=== PATIENT | female | born 1990 | race Caucasian/White ===

== ENCOUNTER 2020-12-14 09:15 | Emergency (ER) | payer MEDICARE, MEDICAID, SELFPAY ==
[2020-12-14 09:25] VITALS: BP 116/71; PULSE 78; RESP 14; TEMP 36.8; O2SAT 98; BMI 19.3
--- NOTE | 2020-12-14 10:03 | ED_ITS ---
HPI - Ear Problem General Chief complaint: Ear Problems <MOLLY Solis Last Filed: 12/14/20 10:11> Stated complaint: ear pain <MOLLY Solis Last Filed: 12/14/20 10:11> Time Seen by Provider: 12/14/20 10:02 <MOLLY Solis Last Filed: 12/14/20 10:11> Source: patient <MOLLY Solis Last Filed: 12/14/20 10:11> Mode of arrival: ambulatory <MOLLY Solis Last Filed: 12/14/20 10:11> Limitations: no limitations <MOLLY Solis Last Filed: 12/14/20 10:11> History of Present Illness HPI Narrative: Patient is a 30-year-old female with no significant past medical history complaining of left ear blockage and pain x2 days. She denies any drainage or blood coming from the ear. She denies swimming recently. She does use Q-tips. She states the bone behind her ear does not hurt but the soft area underneath it has a ball that is tender. She denies fevers. <MOLLY Solis Last Filed: 12/14/20 10:11> Related Data Home medications: Previous Rx's Medication Instructions Recorded amoxicillin-pot clavulanate 1 tab PO Q12H 10 Days #20 tab 12/14/20 [Augmentin] ofloxacin 10 drp OTIC (EARS) DAILY 7 Days 12/14/20 #10 ml <MOLLY Solis Last Filed: 12/14/20 10:11> Allergies/adverse reactions: Allergies Allergy/AdvReac Type Severity Reaction Status Date / Time No Known Allergies Allergy Mild NOT Unverified 05/04/20 16:53 APPLICABLE <MOLLY Solis Last Filed: 12/14/20 10:11> Review of Systems Review of Systems: Yes all other systems are reviewed and are negative <MOLLY Solis Last Filed: 12/14/20 10:11> [facility] Past Medical History Surgical History: Surgical History History of appendectomy <Stefanie Gaston PA-C - Last Filed: 12/14/20 10:11> Social History Social History: Social History Smoking Status: Current every day smoker <Stefanie Gaston PA-C - Last Filed: 12/14/20 10:11> Physical Exam Vital Signs: Vital Signs: Last Vital Signs Temp 98.2 F 12/14/20 09:25 Pulse 78 12/14/20 09:25 Resp 14 12/14/20 09:25 BP 116/71 12/14/20 09:25 Pulse Ox 98 12/14/20 09:25 Body Mass Index 19.3 <Stefanie Gaston PA-C - Last Filed: 12/14/20 10:11> Vital Signs: Last Vital Signs Temp 98.2 F 12/14/20 09:25 Pulse 78 12/14/20 09:25 Resp 14 12/14/20 09:25 BP 116/71 12/14/20 09:25 Pulse Ox 98 12/14/20 09:25 Body Mass Index 19.3 <Andrew Woodson MD - Last Filed: 01/02/21 13:26> Const: General: cooperative, healthy appearing, comfortable, no acute distress and well developed <Stefanie Gaston PA-C - Last Filed: 12/14/20 10:11> Orientation/consciousness: patient oriented x3 <Stefanie Gaston PA-C - Last Filed: 12/14/20 10:11> Limitations: no limitations <Stefanie Gaston PA-C - Last Filed: 12/14/20 10:11> HENMT: Head: Yes normal to inspection <Stefanie Gaston PA-C - Last Filed: 12/14/20 10:11> Ears: hearing grossly normal bilaterally, TM normal on the right, Abnormal EAC present (Tender) erythema, external ear abnormal ( ) auricular tenderness and pain with movement of external ear; no auricular hematomas, TM abnormal (Left) erythematous and with loss of landmarks and other (Pre-auricular lymphadenopathy left side) <Stefanie Gaston PA-C - Last Filed: 12/14/20 10:11> General nose exam: Normal external nose present <Stefanie Gaston PA-C - Last Filed: 12/14/20 10:11> Face and sinus: Yes normal facial exam <Stefanie Gaston PA-C - Last Filed: 12/14/20 10:11> Eyes: General: appearance normal, both eyes and all related structures <Stefanie Gaston PA-C - Last Filed: 12/14/20 10:11> EOM: EOMs intact bilaterally <Stefanie Gaston PA-C - Last Filed: 12/14/20 10:11> Neck: Neck: Yes normal visual inspection and Yes full ROM <Stefanie Gaston PA-C - Last Filed: 12/14/20 10:11> Resp: Effort & Inspection: normal respiratory effort and able to speak in complete sentences <Stefanie Gaston PA-C - Last Filed: 12/14/20 10:11> Neuro: General: patient oriented x3 <Stefanie Gaston PA-C - Last Filed: 12/14/20 10:11> Extrem: General: Yes normal to inspection <Stefanie Gaston PA-C - Last Filed: 12/14/20 10:11> Course Course Course Narrative: I have reviewed the chart <Andrew Woodson MD - Last Filed: 01/02/21 13:26> Discharge Plan Discharge Clinical Impression: Otitis externa, Otitis media <Stefanie Gaston PA-C - Last Filed: 12/14/20 10:11> Patient Disposition: Home, Self-Care <Stefanie Gaston PA-C - Last Filed: 12/14/20 10:11> Instructions: Otitis Externa (ED), Ear Infection (ED) <Stefanie Gaston PA-C - Last Filed: 12/14/20 10:11> Additional Instructions: Please use both medications in full, you may also take ibuprofen for the pain 600 mg every 6 hours. If the pain does not get better after few days, please follow-up with your PCP. <Stefanie Gaston PA-C - Last Filed: 12/14/20 10:11> Prescriptions: New amoxicillin-pot clavulanate [Augmentin] 875-125 mg tablet 1 tab PO Q12H 10 Days Qty: 20 RF: 0 ofloxacin 0.3 % drops 10 drp otic (ears) DAILY 7 Days Qty: 10 RF: 0 <Stefanie Gaston PA-C - Last Filed: 12/14/20 10:11> Interventions: ED Discharge Assessment Last Done: 12/14/20 10:16 <Stefanie Gaston PA-C - Last Filed: 12/14/20 10:11> Discharge Date/Time: 12/14/20 10:16 <Stefanie Gaston PA-C - Last Filed: 12/14/20 10:11>
[2020-12-14] MEDS: Ibuprofen 600 MG TABLET PO (10:11)
== END 2020-12-14 10:16 | disposition home or self-care (01) ==
PROVIDERS: Emergency Provider Emergency Medicine
DX: H66.92 Otitis media, unspecified, left ear (principal); H60.92 Unspecified otitis externa, left ear; H92.02 Otalgia, left ear; F17.200 Nicotine dependence, unspecified, uncomplicated; Z71.6 Tobacco abuse counseling
CPT/HCPCS: 99283; 99284

== ENCOUNTER 2022-04-09 17:32 | Emergency (ER) | payer MEDICARE, MEDICAID, SELFPAY ==
--- NOTE | 2022-04-09 19:25 | PC.NURSE ---
Called for patient in waiting room, no response.
--- NOTE | 2022-04-09 20:04 | PC.NURSE ---
Called for patient in triage, no answer at this time. 2nd try
== END 2022-04-09 20:40 | disposition left against medical advice (07) ==
PROVIDERS: Emergency Provider Emergency Medicine; PCP Internal Medicine
DX: M79.642 Pain in left hand (principal)